=== PATIENT | male | born 1980 | race African-American/Black ===

== ENCOUNTER 2017-03-09 12:40 | Emergency (ER) | payer SELFPAY ==
[~2017-03-09] VITALS: Ht 170.2 cm; Wt 85.0 kg
[~2017-03-09 12:40] MED LIST: Z.0.NO CURRENT MEDS
[2017-03-09] MEDS ORDERED: KETOC2%T TOPICAL ×2 (13:15)
[2017-03-09] MEDS ORDERED: DIFL150T PO ×2 (13:15)
--- NOTE | 2017-03-09 13:20 | PD ---
HPI Chief Complaint: Skin Problem Time Seen by Provider: 13:08 Travel History International Travel<30 days: No Contact w/Intl Traveler<30days: No Traveled to known affect area: No History of Present Illness HPI 36-year-old Afro-[place] male presents the emergency department with a dry itchy well-circumscribed mildly raised rash to the trunk and upper extremities which has been present for approximately 2 weeks. Denies any recent illness, changes in soaps, detergents, or medications. He states it started on the right arm and is spread. It is itchy. He has no pain. No fever no chills no other symptoms. He has no known drug allergies. [facility] Social History Alcohol Use: Yes Tobacco Use: Yes Allergies-Medications (Allergen,Severity, Reaction): Coded Allergies: No Known Allergies (Unverified , 01/01/13) Reported Meds & Prescriptions Reported Meds & Active Scripts Active Diflucan (Fluconazole) 150 Mg Tab 150 Mg PO WEEKLY Nizoral Topical Shampoo (Ketoconazole) 2% Sham 1 Applic TOPICAL DAILY Apply to scalp Reported No Current Meds (Miscellaneous Medication) [facility] [place] Review of Systems Except as stated in HPI: all other systems reviewed are Neg General / Constitutional: No: Fever Eyes: No: Visual changes HENT: No: Headaches Cardiovascular: No: Chest Pain or Discomfort Respiratory: No: Shortness of Breath Gastrointestinal: No: Abdominal Pain Genitourinary: No: Dysuria Musculoskeletal: No: Pain Skin: Positive Rash, Positive Itching, Positive Dryness Neurologic: No: Weakness Psychiatric: No: Depression Endocrine: No: Polydipsia Hematologic/Lymphatic: No: Easy Bruising Physical Exam Narrative GENERAL: Patient appears no acute distress. SKIN: Warm and dry. Normal color. Normal turgor. Patient has diffuse patchy round somewhat raised dry circumscribed rash of various sizes consistent with tinea corporis. No signs of cellulitis or abscess noted. HEAD: Atraumatic. Normocephalic. EYES: Pupils equal and round. No scleral icterus. No injection or drainage. ENT: No nasal bleeding or discharge. Mucous membranes pink and moist. Pharynx is clear. Airway is patent NECK: Trachea midline. Supple nontender. CARDIOVASCULAR: Regular rate and rhythm. RESPIRATORY: No accessory muscle use. Clear to auscultation. Breath sounds equal bilaterally. MUSCULOSKELETAL: Extremities without clubbing, cyanosis, or edema. No obvious deformities. NEUROLOGICAL: Awake and alert. No obvious cranial nerve deficits. Motor grossly within normal limits. Five out of 5 muscle strength in the arms and legs. Normal speech. PSYCHIATRIC: Appropriate mood and affect; insight and judgment normal. MDM Medical Decision Making Medical Screen Exam Complete: Yes Emergency Medical Condition: Yes Differential Diagnosis Eczema. Dermatitis. Tinea corporis. Narrative Course Patient is treated with Diflucan 150 mg weekly for the next 2 weeks. Patient also given Nizoral 2% shampoo to be used as a body wash daily for the next 2 weeks. Patient should follow with a local primary care physician if symptoms persist Diagnosis Primary Impression: Tinea corporis Referrals: [facility] Patient Instructions: General Instructions, Skin Yeast Infection (ED) Additional Instructions: Patient is treated with Diflucan 150 mg weekly for the next 2 weeks. Patient also given Nizoral 2% shampoo to be used as a body wash daily for the next 2 weeks. Patient should follow with a local primary care physician if symptoms persist Med/Other Pt SpecificInfo: Prescription(s) given Scripts Fluconazole (Diflucan) 150 Mg Tab 150 MG PO WEEKLY for Infection, #2 TAB Prov: Ramin Chaney MD 03/09/17 Ketoconazole Topical Shampoo (Nizoral Topical Shampoo) 2% Sham 1 APPLIC TOPICAL DAILY for Fungal Infection, #60 BOTTLE 2 Refills Apply to scalp Prov: Ramin Chaney MD 03/09/17 Disposition: 01 DISCHARGE HOME Condition: Stable Cesar Mclaughlin Mar 09, 2017 13:20
[2017-03-09 13:40] VITALS: BP 125/82; PULSE 82; RESP 18; O2SAT 99
== END 2017-03-09 14:00 | disposition home or self-care (01) ==
LOC: NEPK 12:40
DX: B35.4 Tinea corporis (principal); Z72.0 Tobacco use
CPT/HCPCS: 99284

== ENCOUNTER 2017-05-08 12:02 | Emergency (ER) | payer SELFPAY ==
[~2017-05-08] VITALS: Ht 177.8 cm; Wt 79.5 kg
[~2017-05-08 12:02] MED LIST changes: +DIFL150T PO; +KETOC2%T TOPICAL
[2017-05-08 12:05] VITALS: BP 138/73; PULSE 73; RESP 16; TEMP 97.7; O2SAT 98
[2017-05-08] MEDS ORDERED: LIDOCAINE HCL 1% 50 ML VIAL XX ONE (12:15)
[2017-05-08] MEDS ORDERED: AZITHROMYCIN PWD FOR SUSP 1 GM PACKET PO ONE (12:15)
[2017-05-08] MEDS ORDERED: cefTRIAXone 250 MG VIAL IM ONE (12:15)
[2017-05-08] MEDS ORDERED: metroNIDAZOLE 500 MG TAB PO ONE (12:30)
--- NOTE | 2017-05-08 12:35 | PD ---
HPI . Penile discharge Chief Complaint: Complaint Time Seen by Provider: 12:08 Travel History International Travel<30 days: No Contact w/Intl Traveler<30days: No Traveled to known affect area: No History of Present Illness HPI Patient presents with a chief complaint of a penile discharge. Onset was a couple days ago. His significant other is and recently saw her OB and was diagnosed with Trichomonas. Symptoms are mild and there are no modifying factors. PFSH Past Medical History Medical History: Denies Significant Hx Past Surgical History Abdominal Surgery: Yes Social History Alcohol Use: Yes (OCC) Tobacco Use: Yes ([employer] ) Substance Use: No Allergies-Medications (Allergen,Severity, Reaction): Coded Allergies: No Known Allergies (Unverified Adverse Reaction, Unknown, 05/08/17) Reported Meds & Prescriptions Reported Meds & Active Scripts Active No Active Prescriptions or Reported Medications Review of Systems Except as stated in HPI: all other systems reviewed are Neg Genitourinary: Positive: Other Physical Exam Narrative GENERAL: Awake and alert and in no acute distress. SKIN: Warm and dry. HEAD: Normocephalic/atraumatic. EYES: Pupils are equal. Extraocular movements are intact. NECK: Normal range of motion. CARDIOVASCULAR: Regular rate and rhythm. RESPIRATORY: Nonlabored respirations. MUSCULOSKELETAL: Atraumatic. NEUROLOGICAL: Nonfocal. PSYCHIATRIC: Appropriate mood and affect. Data Data Last Documented VS Vital Signs Date Time Temp Pulse Resp B/P (MAP) Pulse Ox O2 Delivery O2 Flow Rate FiO2 05/08/17 12:05 97.7 73 16 138/73 (94) 98 Orders Orders Gc And Chlamydia Pcr (05/08/17 12:08) Azithromycin Powd Pack (Zithromax Powd P (05/08/17 12:15) Ceftriaxone Inj (Rocephin Inj) (05/08/17 12:15) Lidocaine 1% Inj (50 Ml) (Xylocaine 1% I (05/08/17 12:15) Metronidazole (Flagyl) (05/08/17 12:30) Labs Laboratory Tests Test 05/08/17 12:25 [facility] Medical Decision Making Medical Screen Exam Complete: Yes Emergency Medical Condition: Yes Differential Diagnosis Differential diagnosis of penile discharge includes but is not limited to chlamydia, gonorrhea, nonspecific urethritis Narrative Course This patient presents complaining with penile discharge. His significant other was recently diagnosed with Trichomonas. He will be treated with Rocephin, Zithromax and Flagyl. Diagnosis Primary Impression: STD (male) Patient Instructions: General Instructions, Sexually Transmitted Diseases (DC) Scripts No Active Prescriptions or Reported Meds Disposition: 01 DISCHARGE HOME Condition: Stable Kiana Blackman MD May 08, 2017 12:35
== END 2017-05-08 12:44 | disposition home or self-care (01) ==
LOC: NEPD 12:02
DX: A64 Unspecified sexually transmitted disease (principal); Z72.0 Tobacco use
CPT/HCPCS: 87491; 87591; 96372; 99283; J0696